=== PATIENT | female | born 1960 | race Caucasian/White ===

== ENCOUNTER 2019-10-30 16:50 | Emergency (ER) | payer MEDICAID ==
[~2019-10-30] VITALS: Ht 165.1 cm; Wt 80.7 kg
[2019-10-30 17:03] VITALS: BP 142/86
== END 2019-10-30 17:21 | disposition home or self-care (01) ==
LOC: ER 16:56
DX: M25.511 Pain in right shoulder (principal); M19.90 Unspecified osteoarthritis, unspecified site